=== PATIENT | female | born 1990 | race Hispanic/Latino ===

== ENCOUNTER 2018-06-20 16:59 | Emergency (ER) | payer OTHER ==
[2018-06-20 17:15] VITALS: RESP 18; BMI 35.9
[2018-06-20] MEDS ORDERED: Apap-Butalbital-Caffeine 325-50-40mg Tab PO STA (17:36)
--- NOTE | 2018-06-20 17:44 | ED PDOC ---
Arrival/HPI - General Chief Complaint: Headache Time Seen by Provider: 06/20/18 17:07 - History of Present Illness Narrative History of Present Illness (Text): 06/20/18 17:40 27 yo female, hx asthma, and anxiety, presents with francois since january. pt reports intermittant FRANCOIS since january. pt state she saw her doctor, and had an MRI, which was neg. she has not see a neurologist. pt states pain got worse today, so came to er. no fevers ,or other complaints Past Medical History - Cardiac Hx Cardiac Disorders: No - Pulmonary Hx Respiratory Disorders: No - Neurological Hx Neurological Disorder: No - HEENT Hx HEENT Disorder: No - Renal Hx Renal Disorder: No - Endocrine/Metabolic Hx Endocrine Disorders: No - Hematological/Oncological Hx Blood Disorders: No - Integumentary Hx Dermatological Disorder: No - Musculoskeletal/Rheumatological Hx Musculoskeletal Disorders: No - Psychiatric Hx Psychophysiologic Disorder: Yes Hx Depression: Yes Hx Substance Use: No - Surgical History Hx Eye Surgery: Yes - Anesthesia Hx Anesthesia: Yes Hx Anesthesia Reactions: No Hx Malignant Hyperthermia: No Family/Social History - Physician Review Nursing Documentation Reviewed: Yes Family/Social History: Unknown Family HX Smoking Status: Never Smoked Hx Alcohol Use: No Hx Substance Use: No Allergies/Home Meds Allergies/Adverse Reactions: Allergies amoxicillin Allergy (Verified 06/20/18 17:07) VOMITING Home Medications: Home Meds Medication Instructions Recorded Confirmed Cyclobenzaprine [Flexeril] 5 mg PO PRN PRN 06/20/18 06/20/18 Ibuprofen [Motrin] 600 mg PO PRN PRN 06/20/18 06/20/18 buPROPion XL [Wellbutrin] 150 mg PO DAILY 06/20/18 06/20/18 Review of Systems - Review of Systems Constitutional: Normal Eyes: Normal ENT: Normal Respiratory: Normal Cardiovascular: Normal Gastrointestinal: Normal Genitourinary Female: Normal Musculoskeletal: Normal Skin: Normal Neurological: Headache Endocrine: Normal Hemo/Lymphatic: Normal Psychiatric: Normal Physical Exam Vital Signs Temp Pulse Resp BP Pulse Ox 06/20/18 18:15 98.6 F 80 18 120/84 100 06/20/18 17:10 98.9 F 84 18 122/85 99 Temperature: Afebrile Blood Pressure: Normal Pulse: Regular Respiratory Rate: Normal Appearance: Positive for: Well-Appearing, Non-Toxic, Comfortable Pain Distress: None Mental Status: Positive for: Alert and Oriented X 3 - Systems Exam Head: Present: Atraumatic, Normocephalic Pupils: Present: PERRL Extroacular Muscles: Present: EOMI Conjunctiva: Present: Normal Mouth: Present: Moist Mucous Membranes Neck: Present: Normal Range of Motion Respiratory/Chest: Present: Clear to Auscultation, Good Air Exchange. No: Respiratory Distress, Accessory Muscle Use Cardiovascular: Present: Regular Rate and Rhythm, Normal S1, S2. No: Murmurs Abdomen: No: Tenderness, Distention, Peritoneal Signs Back: Present: Normal Inspection Upper Extremity: Present: Normal Inspection. No: Cyanosis, Edema Lower Extremity: Present: Normal Inspection. No: Edema Neurological: Present: GCS=15, CN II-XII Intact, Speech Normal, Motor Func Grossly Intact, Normal Sensory Function, Normal Cerebellar Funct, Gait Normal, Memory Normal Skin: Present: Warm, Dry, Normal Color. No: Rashes Psychiatric: Present: Alert, Oriented x 3, Normal Insight, Normal Concentration Medical Decision Making ED Course and Treatment: 06/20/18 17:45 suspect tension vs migraine vs psuedotumor cerebri. I discussed performing lab work and LP with pt to eval for opening pressure. she declines. she wishes to "speak to a neurologist first". pt also declines any lab work or reassessment, states "she wants to go home and rest" and will return with worsening. Leaving Against Medical Advice (AMA): The patient is choosing to leave against medical advice. I have personally explained to the patient that choosing to do so may result in permanent bodily harm or . I have discussed at great length that without further evaluation and monitoring there may be unforeseen circumstances and/or deterioration causing permanent bodily harm or as a result of their choice. The patient is alert, oriented, and shows the mental capacity to make clear decisions regarding the patients health care at this time. The patient continues to wish to leave against medical advice. In light of the patients decision to leave against medical advice, follow-up has been arranged and the patient is aware of the importance to following up as instructed. The patient has been advised that they should return to the emergency room immediately if they change their mind at any time, or if their condition begins to change or worsen in any way. - Medication Orders Current Medication Orders: Discontinued Medications Acetaminophen/Butalbital/Caffeine (Fioricet) 1 tab PO STAT STA Stop: 06/20/18 17:37 Last Admin: 06/20/18 18:10 Dose: 1 tab MAR Pain Assessment Document 06/20/18 18:10 [place] (Rec: 06/20/18 18:11 LA [facility] [id number]) Pain Reassessment Is this a pain reassessment? No Sleep Is patient sleeping during reassessment? No Presence of Pain Presence of Pain Yes Pain Scale Used Pain Scale Used Numeric Location Pain Location Body Shaper Setter Description Intensity of Pain at present 8 Disposition/Present on Arrival - Present on Arrival Any Indicators Present on Arrival: No History of DVT/PE: No History of Uncontrolled Diabetes: No Urinary Catheter: No History of Decub. Ulcer: No History Surgical Site Infection Following: None - Disposition Have Diagnosis and Disposition been Completed?: Yes Diagnosis: Headache Disposition: AGAINST MEDICAL ADVICE Disposition Time: 05:00 Condition: UNKNOWN Discharge Instructions (ExitCare): Headache, Adult, Leaving Against Medical Advice Additional Instructions: you are declining lab work, possible lumbar puncture, and reassessment. you are able to return to the er with any worsening symptoms or concerns at any time. Prescriptions: Acetaminophen/Butalbital/Caf [Fioricet] 1 tab PO Q8 PRN #20 tab PRN Reason: Headache Referrals: Kyler Argueta MD [Staff Provider] - Follow up with primary Forms: [employer] (Russian)
[2018-06-20 19:22] VITALS: BP 120/84; PULSE 80; TEMP 98.6; O2SAT 100
== END 2018-06-20 18:15 | disposition left against medical advice (07) ==
LOC: ED 16:59
DX: R51 Headache (principal)